=== PATIENT | female | born 1980 | race Caucasian/White ===

== ENCOUNTER → 2024-07-11 | Outpatient (CLI) | payer OTHER | END | disposition home or self-care (01) | LOC: LAB 08:58 | PROVIDERS: ATTEND Nurse Practitioner | DX: Z57.8 Occupational exposure to other risk factors (principal) | CPT/HCPCS: 36415; 86703; 86706; 86803; 87340 ==

== ENCOUNTER → 2024-09-04 | Outpatient (CLI) | payer OTHER ==
[2024-09-04 10:59] LABS: Hepatitis B Surface Antibody Negative (Negative); Hepatitis B Surface Antigen Negative (Negative)
== END | disposition home or self-care (01) ==
LOC: LAB 08:31
PROVIDERS: ATTEND Nurse Practitioner
DX: Z57.8 Occupational exposure to other risk factors (principal)
CPT/HCPCS: 36415; 86703; 86706; 86803; 87340

== ENCOUNTER → 2024-12-11 | Outpatient (CLI) | payer OTHER | END | disposition home or self-care (01) | LOC: LAB 15:13 | PROVIDERS: ATTEND Nurse Practitioner | DX: Z57.8 Occupational exposure to other risk factors (principal); Y99.0 Civilian activity done for income or pay | CPT/HCPCS: 36415; 86703; 86706; 86803; 87340 ==

== ENCOUNTER 2025-03-10 15:42 | Outpatient (CLI) | payer OTHER ==
[2025-03-11 10:35] LABS: Hepatitis B Surface Antibody Negative (Negative); Hepatitis B Surface Antigen Negative (Negative)
== END 2025-03-10 17:00 | disposition home or self-care (01) ==
LOC: LAB 15:42
PROVIDERS: ATTEND Nurse Practitioner
DX: Z57.8 Occupational exposure to other risk factors (principal)
CPT/HCPCS: 36415; 86703; 86706; 86803; 87340

== ENCOUNTER → 2025-05-19 | Outpatient (CLI) | payer OTHER ==
[2025-05-20 10:45] LABS: Hepatitis B Surface Antigen Negative (Negative)
== END | disposition home or self-care (01) ==
LOC: LAB 10:18
PROVIDERS: ATTEND Nurse Practitioner
DX: Z01.89 Encounter for other specified special examinations (principal); Z77.21 Contact with and (suspected) exposure to potentially hazardous body fluids; Z20.6 Contact with and (suspected) exposure to human immunodeficiency virus [HIV]; Z20.5 Contact with and (suspected) exposure to viral hepatitis
CPT/HCPCS: 36415; 86703; 86706; 86803; 87340